=== PATIENT | female | born 1985 | race Two or more races ===

== ENCOUNTER 2018-05-24 13:30 | Day surgery (SDC) | payer BC ==
[2018-05-24 14:02] VITALS: BMI 24.8
--- NOTE | 2018-05-24 15:07 | HP ---
Admitting History and Physical - Admission Chief Complaint: Abnormal History of Present Illness: 32 yo @ 10 weeks gestation, diagnosed with missed , is pre op for suction D&C. History Source: Patient Limitations to Obtaining History: No Limitations - Past Medical History ...LMP: 03/09/18 ...: Yes ...: 3 ...Para: 2 - Past Surgical History Past Surgical History: Yes: None - Smoking History Smoking history: Never smoked - Alcohol/Substance Use Hx Alcohol Use: No - Social History Usual Living Arrangement: Yes: With Spouse History of Recent Travel: No Home Medications - Allergies Allergies/Adverse Reactions: Allergies Allergy/AdvReac Type Severity Reaction Status Date / Time No Known Allergies Allergy Verified 05/24/18 14:03 - Home Medications Home Medications: Ambulatory Orders Ibuprofen 800 mg PO PRN 05/23/18 Family Disease History - Family Disease History Family History: Unremarkable Review of Systems - Review of Systems Constitutional: reports: No Symptoms Eyes: reports: No Symptoms HENT: reports: No Symptoms Neck: reports: No Symptoms Cardiovascular: reports: No Symptoms Respiratory: reports: No Symptoms Gastrointestinal: reports: No Symptoms Genitourinary: reports: Pain Breasts: reports: No Symptoms Reported Musculoskeletal: reports: No Symptoms Integumentary: reports: No Symptoms Neurological: reports: No Symptoms Endocrine: reports: No Symptoms Hematology/Lymphatic: reports: No Symptoms Psychiatric: reports: No Symptoms Pain Intensity: 0 Physical Examination Vital Signs: Vital Signs Temperature 98.6 F 05/24/18 14:01 Pulse Rate 81 05/24/18 14:01 Respiratory Rate 18 05/24/18 14:01 Blood Pressure 117/71 05/24/18 14:01 O2 Sat by Pulse Oximetry (%) 100 05/24/18 14:02 Constitutional: Yes: Well Nourished Eyes: Yes: Conjunctiva Clear HENT: Yes: Atraumatic Neck: Yes: Supple Cardiovascular: Yes: Regular Rate and Rhythm Respiratory: Yes: Regular Gastrointestinal: Yes: Normal Bowel Sounds Neurological: Yes: Alert, Oriented ...Motor Strength: WNL Psychiatric: Yes: Alert, Oriented Problem List - Problems (1) Missed Code(s): O02.1 - MISSED Assessment/Plan Missed Pre op for suction D&C Consent signed Anesthesia to see patient
[2018-05-24] MEDS ORDERED: PROPOFOL 20 ML ONE ×2 (15:23→16:04)
[2018-05-24] MEDS ORDERED: MIDAZOLAM HCL 2 MG/2 ML SINGLE DOSE VIAL ONE (15:23)
--- NOTE | 2018-05-24 15:59 | OP ---
Operative Note - Note: Operative Date: 05/24/18 Pre-Operative Diagnosis: Missed Operation: Suction D&C Post-Operative Diagnosis: Same as Pre-op Surgeon: Tri Chisholm Anesthesia: General Specimens Removed: Product od conception
[2018-05-24] MEDS ORDERED: KETOROLAC TROMETHAMINE 30 MG/1 ML VIAL ONE (16:03)
[2018-05-24] MEDS ORDERED: oxyCODONE HCL 5 MG TABLET PO PRN (16:41)
[2018-05-24] MEDS ORDERED: ONDANSETRON 4 MG/2 ML VIAL IVPUSH PRN (16:41)
[2018-05-24] MEDS ORDERED: ACETAMINOPHEN 325 MG TABLET (FP) PO PRN (16:41)
[2018-05-24] MEDS ORDERED: LACTATED RINGERS SOLUTION 1,000 ML IV SCH (16:45)
[2018-05-24 16:53] VITALS: TEMP 98
--- NOTE | 2018-05-24 17:00 | OP ---
DATE OF OPERATION: 05/24/2018 PREOPERATIVE DIAGNOSIS: Missed . POSTOPERATIVE DIAGNOSIS: Missed . PROCEDURE: Suction dilatation and curettage. SURGEON: Tri Chisholm MD ANESTHESIA: General. COMPLICATIONS: None. ESTIMATED BLOOD LOSS: Less than 5 mL. PROCEDURE: Patient was taken to the operating room where general anesthesia was administered. Patient was then placed in lithotomy position. She was then prepped and draped in proper sterile fashion. A weighted speculum was placed in the vagina. The anterior lip of the cervix was grasped with a single-toothed tenaculum. Then the cervix was sequentially dilated with Mesa dilators. Then, a 10 mm suction curette was then gently introduced into the uterine cavity. The suction device was activated, and the curette rotated to clear the uterus of all products of conception. A sharp curettage was then performed. Then the curette was then reintroduced to clear the uterus of all remaining products of conception. The instruments were removed. The patient was taken out of lithotomy position. She was taken to PACU in stable condition. PATHOLOGY: Products of conception. Jordan [id number]
[2018-05-24] MEDS ORDERED: oxyCODONE HCL 5 MG TABLET PO ONE (18:00)
[2018-05-24] MEDS ORDERED: oxyCODONE HCL 5 MG TABLET ONE (18:01)
[2018-05-24 19:46] VITALS: BP 105/60; PULSE 84
--- NOTE | 2018-05-30 18:30 | PATH ---
Surgical Pathology Report Patient Name: ALISON ROBERTSON [facility]. Rec. #: [id number] /Age/Gender: 1985 (Age: 32) / F Account: [id number] Location: [facility] SURGICAL Taken: 05/24/2018 Received: 05/29/2018 Reported: 05/30/2018 Physicians: Tri Chisholm M.D. Specimen(s) Received PRODUCTS OF CONCEPTION Clinical History Missed Final Diagnosis PRODUCTS OF CONCEPTION, DILATION AND CURETTAGE: IMMATURE CHORIONIC VILLI AND DECIDUA CONSISTENT WITH PRODUCTS OF CONCEPTION. Electronically Signed Maribell Kaye M.D. Gross Description Received in formalin, labeled "products of conception," is a 8 x 6 x 4 cm. aggregate of velasquez-red soft tissue fragments. Villous tissue is identified. No somatic tissue is identified. A labor representative portion is submitted in one cassette. MLSZ/05/29/2018 sanml/05/29/2018
== END 2018-05-24 19:00 | disposition home or self-care (01) ==
LOC: JASU-SURG 13:30
PROVIDERS: ATTEND Obstetrics & Gynecology
PROC: 10D17ZZ Extraction of Products of Conception, Retained, Via Natural or Artificial Opening (ICD-10-PCS; principal; 2018-05-24 15:00)
DX: O02.1 Missed abortion (principal)
CPT/HCPCS: 86850; 86900; 86901; 88305-TC; 94760

== ENCOUNTER 2019-09-09 00:30 | Inpatient (IN) | payer BC ==
[2019-09-09] MEDS ORDERED: OXYTOCIN 30 UNITS in 0.9% NS 30 UNIT/500 ML INFUS.BAG IVPB SCH (02:15)
--- NOTE | 2019-09-09 02:19 | HP ---
Past Medical History - Admission Chief Complaint: Vaginal bleeding History of Present Illness: 34 yo , @ 39 weeks gestation, EDC 09/16/19, presents t0 L&D c/o vaginal bleeding. Upon admission she was 3cm dilated, History Source: Patient Limitations to Obtaining History: No Limitations - Past Medical History ...: 4 ...Para: 2 ...Term: 2 ...: 0 ...Spon : 1 ...Induced : 0 ...EDC by Sono: 09/16/19 - Past Surgical History Past Surgical History: Yes: None Hx Myomectomy: No Hx Transabdominal Cerclage: No - Smoking History Smoking history: Never smoked - Alcohol/Substance Use Hx Alcohol Use: No History of Substance Use: reports: None - Social History Usual Living Arrangement: Yes: With Spouse History of Recent Travel: No Home Medications - Allergies Allergies/Adverse Reactions: Allergies Allergy/AdvReac Type Severity Reaction Status Date / Time No Known Allergies Allergy Verified 08/26/19 12:50 - Home Medications Home Medications: Ambulatory Orders Vits96/Iron Fum/Folic [ Tablet] 1 each PO DAILY 07/08/19 Family Medical History Family History: Unremarkable Review of Systems - Review of Systems Constitutional: reports: No Symptoms Eyes: reports: No Symptoms HENT: reports: No Symptoms Neck: reports: No Symptoms Cardiovascular: reports: No Symptoms Respiratory: reports: No Symptoms Gastrointestinal: reports: No Symptoms Genitourinary: reports: Vaginal Bleeding Breasts: reports: No Symptoms Reported Musculoskeletal: reports: No Symptoms Integumentary: reports: No Symptoms Neurological: reports: No Symptoms Endocrine: reports: No Symptoms Hematology/Lymphatic: reports: No Symptoms Psychiatric: reports: No Symptoms Pain Intensity: 2 Physical Exam - Maternity Vital Signs: Vital Signs Temperature 98.1 F 09/09/19 00:36 Pulse Rate 95 H 09/09/19 00:36 Respiratory Rate 20 09/09/19 00:36 Blood Pressure 112/68 09/09/19 00:36 O2 Sat by Pulse Oximetry (%) Constitutional: Yes: Well Nourished Eyes: Yes: Conjunctiva Clear HENT: Yes: Atraumatic Neck: Yes: Supple Cardiovascular: Yes: Regular Rate and Rhythm Lungs: Clear to auscultation Breast(s): Yes: WNL - Abdominal Exam/OB Number of Fetuses: Single Presentation: Vertex Contractions: Yes - Vaginal Exam/OB Vaginal Bleediing: Light Speculum Exam: No Dilatation (cm): 3 Effacement (%): 70 Presentation: Vertex/Position Station: -3 - Physical Exam ...Motor Strength: WNL Psychiatric: Yes: Alert, Oriented Problem List - Problems (1) 39 weeks gestation of Problems reviewed: Yes Code(s): Z3A.39 - 39 WEEKS GESTATION OF (2) Vaginal bleeding during , antepartum Problems reviewed: Yes Code(s): O46.90 - ANTEPARTUM HEMORRHAGE, UNSPECIFIED, UNSPECIFIED TRIMESTER Assessment/Plan 39 weeks gestation Vaginal bleeding Admit to L&D Analgesia as needed Pitocin augmentation
[2019-09-09] MEDS: DEXTROSE 5%-LACTATED RINGERS 1,000 ML IV SCH ×2 (02:30→06:00)
[2019-09-09 03:00] LABS: BASO % 0.3 % (0-2.0); EOS % 0.2 % (0-4.5); HEMATOCRIT 39.2 % (32.4-45.2); HEMOGLOBIN 13.8 GM/dL (10.7-15.3); LYMPH % 14.4 % (8-40); MCHC 35.1 g/dl (32.0-36.0); MEAN PLT VOLUME 9.6 fl (7.5-11.1); MONO % 7.5 % (3.8-10.2); NEUT % 77.6 % (42.8-82.8); PLATELET COUNT 213 K/MM3 (134-434); RBC 4.17 M/mm3 (3.60-5.2); WHITE BLOOD COUNT 12.4 K/mm3 (4.0-10.0)
[2019-09-09 03:13] LABS: INR 0.94 (0.83-1.09); PROTHROMBIN TIME (PATIENT) 11.1 SEC (9.7-13.0)
[2019-09-09 03:16] LABS: ACTIVATED PTT 28.8 SECONDS (25.2-36.5)
[2019-09-09 03:36] VITALS: BMI 30.3
[2019-09-09 03:39] LABS: BLOOD UREA NITROGEN 6.8 mg/dL (7-18); CREATININE 0.5 mg/dL (0.55-1.3); POTASSIUM 3.7 mmol/L (3.5-5.1)
[2019-09-09] MEDS ORDERED: PROMETHAZINE HCL 25 MG/1 ML VIAL IVPB ONE (05:25)
[2019-09-09] MEDS ORDERED: BUTORPHANOL TARTRATE 1 MG/ML VIAL IVPB ONE (05:25)
[2019-09-09] MEDS ORDERED: PROMETHAZINE HCL 25 MG/1 ML VIAL ONE (05:27)
[2019-09-09] MEDS ORDERED: BUTORPHANOL TARTRATE 1 MG/ML VIAL ONE ×2 (05:27)
[2019-09-09] MEDS: OXYTOCIN 20 UNITS in 0.9% NS 20 UNIT/1,000 ML INFUS.BAG IV SCH (08:10)
[2019-09-09] MEDS ORDERED: OXYTOCIN 20 UNITS in 0.9% NS 20 UNIT/1,000 ML INFUS.BAG IV ONE (08:11)
[2019-09-09] MEDS ORDERED: oxyCODONE HCL 5 MG TABLET ONE (08:23)
[2019-09-09] MEDS ORDERED: BENZOCAINE 20% 57 GM BOTTLE TP PRN (08:49)
[2019-09-09] MEDS ORDERED: METHYLERGONOVINE MALEATE 0.2 MG/1 ML AMP IM PRN (08:49)
[2019-09-09] MEDS ORDERED: BENZOCAINE 28 GM HEMORRHOIDAL OINTMENT TP PRN (08:49)
[2019-09-09] MEDS ORDERED: BISACODYL 10 MG SUPP.RECT RC PRN (08:49)
[2019-09-09] MEDS ORDERED: WITCH HAZEL 50% (TUCKS) 40 PAD/JAR PAD TP PRN (08:49)
--- NOTE | 2019-09-09 08:54 | PN ---
Delivery - Delivery Vaginal Delivery: Spontaneous Type of Anesthesia: Local Episiotomy/Laceration: 2nd degree EBL (cc): 300 Delivery, Single - Stages of Labor Date 1st Stage Initiatied: 09/09/19 Time 1st Stage Initiated: 00:00 Date 2nd Stage Initiated: 09/09/19 Time 2nd Stage Initiated: 07:45 Date of Delivery: 09/09/19 Time of Delivery: 08:04 Time Placenta Delivered: 08:09 - Condition of Screwhead Polisher/Dam Tender Present: No Gender: Female Total Hours ROM (Hrs/Mins): 0/34 - 1 Minute Total Score: 9 5 Minutes Total Score: 10 - [place] Feeding Plan Initial Plan: Elected not to breastfeed exclusively throughout hospitalization Remarks - Remarks Remarks: Normal spontaneous vaginal delivery of a live girl over second degree laceration. Nose / Oropharynx suctioned @ perineum. Cord clamped and cut. Baby handed to nurse. Placenta expelled spontaneously intact Laceration repaired with 2.0 Chromic.
[2019-09-09] MEDS ORDERED: oxyCODONE HCL 5 MG TABLET PO ONE (10:00)
[2019-09-09] MEDS: PRENATAL VITAMINS W/ FOLIC ACID TABLET (FP) PO SCH (10:46)
[2019-09-09] MEDS: FERROUS SO4 325 MG TABLET (FP) PO SCH ×2 (10:46→21:50)
[2019-09-09] MEDS: ACETAMINOPHEN 325 MG TABLET (FP) PO PRN ×3 (10:49→21:50)
[2019-09-09] MEDS: IBUPROFEN 600 MG TABLET (FP) PO PRN ×3 (10:49→21:51)
[2019-09-10] MEDS: ACETAMINOPHEN 325 MG TABLET (FP) PO PRN ×3 (04:09→21:31)
[2019-09-10] MEDS: IBUPROFEN 600 MG TABLET (FP) PO PRN ×3 (04:10→21:32)
[2019-09-10 09:19] LABS: BASO % 0.4 % (0-2.0); EOS % 1.6 % (0-4.5); HEMATOCRIT 34.7 % (32.4-45.2); HEMOGLOBIN 11.8 GM/dL (10.7-15.3); LYMPH % 20.2 % (8-40); MCH 32.5 pg (25.7-33.7); MCHC 34.1 g/dl (32.0-36.0); MEAN CELL VOLUME 95.4 fl (80-96); MEAN PLT VOLUME 9.3 fl (7.5-11.1); MONO % 8.2 % (3.8-10.2); NEUT % 69.6 % (42.8-82.8); PLATELET COUNT 155 K/MM3 (134-434); RBC 3.64 M/mm3 (3.60-5.2); RDW 14.4 % (11.6-15.6); WHITE BLOOD COUNT 8.3 K/mm3 (4.0-10.0)
[2019-09-10] MEDS: PRENATAL VITAMINS W/ FOLIC ACID TABLET (FP) PO SCH (09:30)
[2019-09-10] MEDS: FERROUS SO4 325 MG TABLET (FP) PO SCH ×2 (09:30→21:31)
[2019-09-10] MEDS ORDERED: FLU VACC QS2019-20(6MOS UP)/PF 60 MCG/0.5 ML SYRINGE IM ONE (10:00)
[2019-09-10] MEDS ORDERED: FLU VACCINE QUAD 60 MCG/0.5 ML (MDV 19-20) IM ONE (10:00)
[2019-09-10] MEDS ORDERED: DIPHTH,PERTUSS(ACELL),TET 0.5 ML DISP.SYRIN IM ONE (10:00)
--- NOTE | 2019-09-10 10:40 | PN ---
Post Progress Note - Subjective Subjective: 34 yo Para 3, status post vaginal delivery, seen and evaluated. Doing well. Post Day: 1 Type of Delivery: Vital Signs: Vital Signs Temperature 98.0 F 09/10/19 07:40 Pulse Rate 72 09/10/19 07:40 Respiratory Rate 18 09/10/19 07:40 Blood Pressure 107/67 09/10/19 07:40 O2 Sat by Pulse Oximetry (%) 99 09/09/19 09:15 Breast Exam: Yes: Soft Uterus: Yes: Fundus Firm Abdomen/GI: Yes: Abdomen soft, Tolerating PO Lochia: Yes: Rubra Lochia, amount: Moderate Extremities: Yes: Calves non-tender Perineum: Yes: Laceration (Healing) Activity: Ambulating - Labs Labs: CBC WBC 8.3 K/mm3 (4.0-10.0) 09/10/19 08:40 RBC 3.64 M/mm3 (3.60-5.2) 09/10/19 08:40 Hgb 11.8 GM/dL (10.7-15.3) 09/10/19 08:40 Hct 34.7 % (32.4-45.2) 09/10/19 08:40 MCV 95.4 fl (80-96) 09/10/19 08:40 MCH 32.5 pg (25.7-33.7) 09/10/19 08:40 MCHC 34.1 g/dl (32.0-36.0) 09/10/19 08:40 RDW 14.4 % (11.6-15.6) 09/10/19 08:40 Plt Count 155 K/MM3 (134-434) D 09/10/19 08:40 MPV 9.3 fl (7.5-11.1) 09/10/19 08:40 Absolute Neuts (auto) 5.8 K/mm3 (1.5-8.0) 09/10/19 08:40 Neutrophils % 69.6 % (42.8-82.8) 09/10/19 08:40 Lymphocytes % 20.2 % (8-40) D 09/10/19 08:40 Monocytes % 8.2 % (3.8-10.2) 09/10/19 08:40 Eosinophils % 1.6 % (0-4.5) D 09/10/19 08:40 Basophils % 0.4 % (0-2.0) 09/10/19 08:40 Nucleated RBC % 0 % (0-0) 09/10/19 08:40 Problem List - Problems (1) 39 weeks gestation of Problems reviewed: Yes Code(s): Z3A.39 - 39 WEEKS GESTATION OF (2) Vaginal bleeding during , antepartum Problems reviewed: Yes Code(s): O46.90 - ANTEPARTUM HEMORRHAGE, UNSPECIFIED, UNSPECIFIED TRIMESTER (3) Status post normal vaginal delivery Problems reviewed: Yes Code(s): OYN8219 - Assessment/Plan Status post normal vaginal delivery Stable Continue routine care
[2019-09-10] MEDS: DEXTROSE 5%-LACTATED RINGERS 1,000 ML IV SCH (20:39)
[2019-09-10] MEDS: OXYTOCIN 20 UNITS in 0.9% NS 20 UNIT/1,000 ML INFUS.BAG IV SCH (20:39)
[2019-09-10] MEDS ORDERED: SENNOSIDES/DOCUSATE COMBO (SENNA PLUS) TABLET (UD) PO PRN (22:00)
--- NOTE | 2019-09-11 07:18 | DS ---
Physical Exam-REGULATORY TECHNICIAN Vital Signs: Vital Signs Temperature 98.1 F 09/10/19 22:00 Pulse Rate 77 09/10/19 22:00 Respiratory Rate 18 09/10/19 22:00 Blood Pressure 119/67 09/10/19 22:00 O2 Sat by Pulse Oximetry (%) 99 09/09/19 09:15 Constitutional: Yes: Well Nourished Eyes: Yes: Conjunctiva Clear HENT: Yes: Atraumatic Neck: Yes: Supple Cardiovascular: Yes: Regular Rate and Rhythm Respiratory: Yes: Regular Gastrointestinal: Yes: Normal Bowel Sounds External Genitalia: Yes: Normal Vaginal Exam: Yes: Normal Cervix: Yes: Normal Uterus: Yes: Firm ....Post : Yes: Uterus firm, Moderate lochia serosa Breast(s): Yes: WNL Musculoskeletal: Yes: WNL Extremities: Yes: WNL Neurological: Yes: Alert, Oriented ...Motor Strength: WNL Psychiatric: Yes: Alert, Oriented Labs: CBC, BMP 09/10/19 08:40 09/09/19 02:30 Delivery - Delivery Vaginal Delivery: Spontaneous Type of Anesthesia: Local Episiotomy/Laceration: 2nd degree EBL (cc): 300 Delivery, Single - Stages of Labor Date 1st Stage Initiatied: 09/09/19 Time 1st Stage Initiated: 00:00 Date 2nd Stage Initiated: 09/09/19 Time 2nd Stage Initiated: 07:45 Date of Delivery: 09/09/19 Time of Delivery: 08:04 Time Placenta Delivered: 08:09 - Condition of Infant Voip Engineer/School Crossing Guard Supervisor Present: No Gender: Female Weight: 6 lb 8 oz Total Hours ROM (Hrs/Mins): 0/34 - 1 Minute Total Score: 9 5 Minutes Total Score: 10 - [place] Feeding Plan Initial Plan: Elected not to breastfeed exclusively throughout hospitalization Discharge Summary Problems reviewed: Yes Reason For Visit: LABOR Current Active Problems 39 weeks gestation of (Acute) Status post normal vaginal delivery (Acute) Vaginal bleeding during , antepartum (Acute) Procedures: Principal: Normal spontaneous vaginal delivery Hospital Course: Routine care Health Concerns: None Plan of Treatment: Ambulation Analgesia as needed F/U with MD in 6 weeks Goals: Resume regular activities in 6 weeks Condition: Good - Instructions Diet, Activity, Other Instructions: Regular diet No douching, no sexual intercourse x 6 weeks. F/U with MD in 6 weeks If pain, fever, or heavy bleeding, call M.DRobert Referrals: Tri Chisholm MD [Staff Physician] - Disposition: HOME - Home Medications Comprehensive Discharge Medication List: Ambulatory Orders Vits96/Iron Fum/Folic [ Tablet] 1 each PO DAILY 07/08/19
[2019-09-11 08:05] VITALS: BP 124/76; PULSE 75; TEMP 98.1
[2019-09-11] MEDS: FERROUS SO4 325 MG TABLET (FP) PO SCH (09:15)
[2019-09-11] MEDS: PRENATAL VITAMINS W/ FOLIC ACID TABLET (FP) PO SCH (09:15)
== END 2019-09-11 11:40 | disposition home or self-care (01) | DRG 807 ==
LOC: JDEL 00:30 → JLDR 01:50 → J3W 10:31
PROVIDERS: ADMIT Obstetrics & Gynecology; ATTEND Obstetrics & Gynecology
PROC: 10E0XZZ Delivery of Products of Conception, External Approach (ICD-10-PCS; principal; 2019-09-09)
PROC: 0KQM0ZZ Repair Perineum Muscle, Open Approach (ICD-10-PCS; 2019-09-09)
PROC: 0W8NXZZ Division of Female Perineum, External Approach (ICD-10-PCS; 2019-09-09)
DX: O70.1 Second degree perineal laceration during delivery (principal); Z37.0 Single live birth; O46.93 Antepartum hemorrhage, unspecified, third trimester; Z3A.39 39 weeks gestation of pregnancy
CPT/HCPCS: 36415; 59409; 80048; 85025; 85610; 85730; 86593; 86850; 86900; 86901; 90686; 90715; G0008